=== PATIENT | male | born 1985 | race Caucasian/White ===

== ENCOUNTER 2016-08-05 22:36 | Emergency (ER) | payer BC ==
--- NOTE | ~2016-08-05 | ER ---
PATIENT'S NAME: PATTY DEL ROSARIO [facility] AGE: 31 Y [address] ROOM: [place] [address] LOCATION: [facility] ADMIT DATE: 08/05/2016 ER/Outpatient Report DISCHARGE DATE: 08/05/2016 FAMILY PHYSICIAN: PHYSICIAN, NO ATTENDING PHYSICIAN: Milady Zepeda Admission date and time documented in the medical record. I saw the patient at 2255 hours. CHIEF COMPLAINT: Anxiety and panic attack. HISTORY OF PRESENT ILLNESS: The patient is a 31-year-old male, who has had problems with anxiety and panic attacks off and on. He had one tonight about 30 minutes prior to coming into the emergency room that almost incapacitated him. He did make it to the emergency room here for evaluation. Denies any recent cold, cough, flus, fever, chills, or sweats. No headache, eyes, ears, nose, throat, neck, or spine pain. No lightheadedness, dizziness, syncope, or near syncope. No fall or trauma. No chest pain, shortness of breath. No abdominal pain, nausea, vomiting, diarrhea, or urinary complaints. No joint or muscle swelling, redness, or pain. No skin eruptions or rash. Other than the anxiety and situational disturbance, panic attacks, he has had no other psych issues. No seizure history, TIAs, CVAs. No endocrine problems. HOME MEDICATIONS: None. ALLERGIES: NONE. SOCIAL HISTORY: The patient smokes half pack of cigarettes per day. He does chew half a can of tobacco a day. SIGNIFICANT PAST MEDICAL HISTORY: Tobacco abuse, anxiety, and panic attacks. OPERATIONS: None. REVIEW OF SYSTEMS: All systems reviewed by me are negative with exception of those discussed in history of present illness. PATIENT'S NAME: PATTY DEL ROSARIO [facility] AGE: 31 Y [address] ROOM: [place] [address] LOCATION: [facility] ADMIT DATE: 08/05/2016 ER/Outpatient Report DISCHARGE DATE: 08/05/2016 FAMILY PHYSICIAN: PHYSICIAN, NO ATTENDING PHYSICIAN: Milady Zepeda PHYSICAL EXAMINATION: VITAL SIGNS: Temperature 98.5, tympanic; pulse 100; respirations 20; O2 saturation on room air is 96%; blood pressure 156/84. HEENT: Head: Normocephalic. Eyes, Ears, Nose, Throat: Clear. Mucous membranes are moist. Teeth and jaw intact. NECK: No nuchal rigidity. No findings of adenopathy. SPINE: Negative. LUNGS: Clear. No rales, rhonchi, or wheezes. HEART: Regular. Pulses are palpable. ABDOMEN: Soft, nontender. Good bowel tones. EXTREMITIES: Intact. NEUROVASCULAR: Intact. SKIN: Clear. No skin eruptions or rash. LABORATORY DATA: CBC and CMS are drawn, results are pending. IMPRESSION: Anxiety and panic attack. PLAN: The patient dismissed from the emergency department. Observation. Activity as tolerated. Ativan 1 mg 3 times a day as needed for anxiety, #12. Discussion ensued with the patient that he needs to get set up with a personal physician and probably get scheduled for counseling. I did discuss this all with him and he understands and agrees. Dismissed home. MILADY ZEPEDA MD SDS/modl /[id number] d: 08/06/167 t: 08/06/16 1801, OUTPATIENT REPORT
[2016-08-05 23:49] LABS: BASOPHIL % 0.6 %; EOSINOPHIL # 0.1 K/uL (0.0-0.5); HEMATOCRIT 43.7 % (37.0-53.0); HEMOGLOBIN 15.2 g/dL (12.0-17.0); IMMATURE GRANULOCYTE % 0.4 %; LYMPHOCYTE # 2.6 K/uL (0.8-4.0); LYMPHOCYTE % 38.4 %; MCH 29.9 pg (27.0-34.0); MCHC 34.8 gm/dL (32.0-36.5); MCV 85.9 fl (83.0-98.0); MONOCYTE # 0.6 K/uL (0.0-1.0); MONOCYTE % 8.1 %; MPV 11.8 fl (9.4-12.4); NEUTROPHIL # (ANC) 3.5 K/uL (1.4-9.0); NEUTROPHIL % 51.5 %; NRBC % 0 /100WBC (0-0.00); PLATELET COUNT 181 K/uL (150-450); RBC 5.09 M/uL (4.00-6.00); RDW-CV 11.8 % (11.9-14.6); WBC 6.8 K/uL (4.0-11.0)
[2016-08-06 00:15] LABS: ALBUMIN 4.1 gm/dL (3.5-5.0); ALK PHOS 33 IU/L (33-138); BLOOD UREA NITROGEN 13 mg/dL (6-24); CALCIUM 8.6 mg/dL (8.5-10.5); CHLORIDE 103 mMol/L (96-110); CO2 25 mMol/L (22-32); ESTIMATED GFR (MDRD EQUATION) > 60; TOTAL BILIRUBIN 0.4 mg/dL (0.0-1.5); TOTAL PROTEIN 7.6 g/dL (6.0-8.4)
[2016-08-06 00:21] LABS: ANION GAP 15.2 (10.0-19.0); POTASSIUM 4.2 mMol/L (3.7-5.1)
[2016-08-06 00:22] LABS: ALT 85 IU/L (12-78); AST 40 IU/L (10-40)
[2016-08-06 00:23] LABS: SODIUM 139 mMol/L (135-145)
== END 2016-08-05 23:47 | disposition disaster alternative care site (69) ==
LOC: GMED 22:36
PROVIDERS: Emergency Medicine
DX: F41.0 Panic disorder [episodic paroxysmal anxiety] (principal); F17.210 Nicotine dependence, cigarettes, uncomplicated; F17.220 Nicotine dependence, chewing tobacco, uncomplicated